=== PATIENT | male | born 1955 | race Caucasian/White ===

== ENCOUNTER 2016-10-02 05:21 | Inpatient (IN) | payer BC ==
[2016-09-20 08:49] VITALS: BMI 29.0
--- NOTE | 2016-09-20 09:19 | PAT Medication Instructions ---
Service Date Sep 20, 2016. Current Home Medication List Hydrochlorothiazide (Hctz), 25 MG PO QAM Losartan Potassium (Cozaar), 100 MG PO QAM Metoprolol Succ (Toprol Xl) (Toprol-Xl), 50 MG PO QAM Simvastatin (Zocor), 20 MG PO QPM Medication Instructions For Your Scheduled Surgery - Hold the following medications the morning of surgery: Hydrochlorothiazide (Hctz), 25 MG PO QAM Losartan Potassium (Cozaar), 100 MG PO QAM - Take the following medications the morning of surgery with a sip of water: Metoprolol Succ (Toprol Xl) (Toprol-Xl), 50 MG PO QAM - Take the following medications as scheduled the night before surgery: Simvastatin (Zocor), 20 MG PO QPM If you have any questions please call us at [phone] or [phone] or [phone]
--- NOTE | 2016-09-20 09:50 | DIAGNOSTIC IMAGING REPORT ---
CHEST PREADMISSION(PA/LAT) CLINICAL HISTORY: 61 years-old Male presenting with preadmission chest x-ray. TECHNIQUE: PA and lateral views of the chest were obtained. COMPARISON: 2008. FINDINGS: Cardiomediastinal silhouette normal. Lungs and pleural spaces clear. Osseous structures and upper abdomen normal. IMPRESSION: 1. No acute cardiopulmonary disease. Electronically signed by: Brian Keita M.D. 09/20/2016 9:49 AM Dictated Date/Time: 09/20/2016 9:46 AM
[2016-09-20 09:53] LABS: BASO % 0.6 %; BASO ABS # 0.04 K/uL (0-0.2); COMPLETE YES; EOS % 4.5 %; IG% 0.4 %; LYMPH % 19.4 %; LYMPH ABS # 1.39 K/uL (1.2-3.4); MEAN CELL VOLUME 89.6 fL (80-100); MEAN CORPUSCULAR HEMOGLOBIN 29.9 pg (25-34); MEAN CORPUSCULAR HGB CONC 33.3 g/dl (32-36); MEAN PLATELET VOLUME 9.8 fL (7.4-10.4); MONO % 8.8 %; NEUT % 66.3 %; PLATELET COUNT 150 K/uL (130-400); RED BLOOD COUNT 5.02 M/uL (4.7-6.1); WHITE BLOOD COUNT 7.15 K/uL (4.8-10.8)
[2016-09-20 09:56] LABS: MANUAL MICROSCOPIC REQUIRED? NO; URINE APPEARANCE CLEAR (CLEAR); URINE BILIRUBIN NEG (NEG); URINE COLOR YELLOW; URINE NITRITE NEG (NEG); URINE PH 6.5 (4.5-7.5); UROBILINOGEN NEG (NEG)
[2016-09-20 10:02] LABS: REVIEW REQ? NO
[2016-09-20 10:55] LABS: BUN/CREATININE RATIO 13.1 (10-20); CALCIUM 9.3 mg/dl (8.5-10.1); CREATININE 0.83 mg/dl (0.60-1.40); POTASSIUM 4.5 mmol/L (3.5-5.1)
[~2016-10-02] VITALS: Ht 170.2 cm; Wt 85.9 kg
[2016-10-02] VITALS (18 sets, daily range): BP systolic 127–172; BP diastolic 75–97; PULSE 64–90; TEMP 36.4–37; O2SAT 94–99; Ht 170.2 cm; Wt 85.9 kg
[~2016-10-02 05:21] MED LIST: HYDR25TA4 PO; LOSA1TAB38 PO; METO50TA7 PO; SIMV20TA2 PO
[2016-10-02] MEDS ORDERED: LACTATED RINGER'S 1000ML 1,000 ML IV SCH (06:00)
[2016-10-02] MEDS ORDERED: CEFAZOLIN 2000 MG/60 ML D5W IV SCH (06:00)
[2016-10-02] MEDS ORDERED: FENTANYL CITRATE INJ 50 MCG/1 ML 2 ML VIAL ONE ×3 (06:53→08:11)
[2016-10-02] MEDS ORDERED: MIDAZOLAM HCL 1 MG/ML 2ML VIAL ONE ×2 (06:53→09:30)
[2016-10-02] MEDS ORDERED: SODIUM CHLORIDE 0.9% PF 50 ML VIAL ONE (06:58)
[2016-10-02] MEDS ORDERED: BACITRACIN 50000 UNIT VIAL ONE (06:59)
[2016-10-02] MEDS ORDERED: ONDANSETRON INJ 2 MG/ML 2 ML VIAL IV PRN ×2 (07:15→09:30)
[2016-10-02] MEDS ORDERED: EpHEDrine SULFATE INJ 50 MG/ML AMP IV PRN (07:15)
[2016-10-02] MEDS ORDERED: ATROPINE SULFATE 0.1 MG/ML 5ML SYR IV PRN (07:15)
[2016-10-02] MEDS ORDERED: HYDROmorphone INJ 1 MG/ML SYR IV PRN ×2 (07:15→12:45)
[2016-10-02] MEDS ORDERED: PROMETHAZINE HCL INJ 6.25 MG in SODIUM CHLORIDE 0.9% 50ML 50 ML IV PRN (07:15)
[2016-10-02] MEDS ORDERED: FENTANYL CITRATE INJ 50 MCG/1 ML 2 ML VIAL IV PRN (07:15)
--- NOTE | 2016-10-02 07:28 | History and Physical ---
History & Physical Date Oct 02, 2016. Chief Complaint Neck and arm pain History of Present Illness The patient is a 61 year old male with complaints of neck and arm pain Additional History Hepatic Disease: No Endocrine Disorder: No Kidney Disease: No Hypertension: Yes Heart Disease: No Bleeding Tendencies: No Infectious Diseases: No Allergies Coded Allergies: Lisinopril (Verified Allergy, Unknown, HIVES, 09/20/16) Uncoded Allergies: CHG WIPES (Allergy, Mild, RASH, 10/02/16) Home Medications Scheduled Hydrochlorothiazide (Hctz), 25 MG PO QAM Losartan Potassium (Cozaar), 100 MG PO QAM Metoprolol Succ (Toprol Xl) (Toprol-Xl), 50 MG PO QAM Simvastatin (Zocor), 20 MG PO QPM Physical Examination Skin: warm/dry, no rash Eyes: normal inspection, EOMI, sclerae normal ENT: normal ENT inspection, pharynx normal Head: normocephalic, atraumatic Neck: supple, no adenopathy, trachea midline Respiratory/Chest: lungs clear, normal breath sounds, no respiratory distress Cardiovascular: regular rate, rhythm, no edema, no murmur Abdomen / GI: normal bowel sounds, non tender Back: normal inspection Extremities: normal inspection, normal range of motion Neurologic/Psych: no motor/sensory deficits, alert, normal reflexes, oriented x 3 Diagnosis Cervical spinal stenosis Plan of Treatment ACDF C5 6 C6 7
--- NOTE | 2016-10-02 07:28 | History & Physical Bridge Note ---
H&P Re-Evaluation Bridge Note: I have examined the patient, reviewed the History & Physical and in the interval since the performance of the History & Physical I have noted the following changes of clinical significance: No changes noted
[2016-10-02] MEDS ORDERED: HYDROmorphone INJ 2 MG/ML SYR/VIAL ONE ×2 (08:03→09:09)
[2016-10-02] MEDS ORDERED: DEXAMETHASONE SOD INJ 4 MG/ML VIAL ONE (08:21)
[2016-10-02] MEDS ORDERED: ROCURONIUM BROMIDE 10 MG/ML 5 ML VIAL ONE (08:21)
[2016-10-02] MEDS ORDERED: ONDANSETRON INJ 2 MG/ML 2 ML VIAL ONE ×2 (08:21→09:13)
[2016-10-02] MEDS ORDERED: PROPOFOL IV EMULSION 10 MG/ML 20 ML VIAL IV ONE (08:21)
[2016-10-02] MEDS ORDERED: LIDOCAINE HCL 2% 2 ML VIAL (20MG/ML) ONE (08:21)
[2016-10-02] MEDS ORDERED: NEOSTIGMINE METHYLSULFATE 5 MG/5 ML SYR ONE (09:13)
[2016-10-02] MEDS ORDERED: GLYCOPYRROLATE INJ 0.2 MG/ML VIAL ONE (09:13)
[2016-10-02] MEDS ORDERED: FLOSEAL HEMOSTATIC MATRIX 10ML TOP ONE (09:22)
[2016-10-02] MEDS ORDERED: HYDROmorphone INJ 0.5 MG/0.5 ML SYR IV PRN (09:30)
[2016-10-02] MEDS ORDERED: DiphenhydrAMINE HCL 50 MG/ML VIAL IV PRN (09:30)
[2016-10-02] MEDS ORDERED: LORAZEPAM INJ 0.5 MG in SYRINGE 0.75 ML IV PRN (09:30)
[2016-10-02] MEDS ORDERED: DO NOT ADMINISTER PNEUMOCOCCAL VACCINE PRN ×2 (09:30)
[2016-10-02] MEDS ORDERED: DO NOT ADMINISTER FLU VACCINE PRN ×3 (09:30)
[2016-10-02] MEDS ORDERED: LORAZEPAM 0.5 MG TAB PO PRN (09:30)
[2016-10-02] MEDS ORDERED: ACETAMINOPHEN IV 1,000 MG in EMPTY BAG 0 ML IV PRN (09:30)
[2016-10-02] MEDS ORDERED: NALOXONE HCL 0.4 MG/1 ML VIAL/CARP IV PRN (09:30)
[2016-10-02] MEDS ORDERED: DEXAMETHASONE INJ 8 MG in SYRINGE 0 ML IV PRN (09:30)
[2016-10-02] MEDS ORDERED: MAGNESIUM HYDROXIDE SUSP 30 ML UDC PO PRN (09:30)
[2016-10-02] MEDS ORDERED: RACEPINEPHRINE 2.25% NEBU SOLN 0.5 ML VIAL INH PRN (09:30)
--- NOTE | 2016-10-02 09:33 | [facility] Operative Report ---
Operative Report Operative Date Oct 02, 2016. Pre-Operative Diagnosis Cervical Spinal Stenosis Post-Operative Diagnosis same as pre-operative Procedure(s) Performed #1 anterior cervical discectomy bilateral foraminotomies C5 6 C6 7. #2 anterior cervical arthrodesis C5 6 and C6 7. #3 placement of cortical allograft filled with DBM 7 mm in height C5 6 C6 7. #4 application of bell plate and screws C5 [address] Rasheed Irvin Sports Therapist Surgeon(s) none per surgeon Findings Severe cervical spinal stenosis Specimens none per surgeon Description of Procedure Patient was met with preoperatively case discussed all questions are dressed with a point patient was taken back to the operative suite and after undergoing successful intubation placed in a supine position Zhang table head in [place] headholder. All promises well-padded eyes inspected to ensure there is no external pressure placed on. This point the anterior cervical spines prepped draped nostril fashion. With the assistance of fluoroscopy to verify the C6 vertebral body and a transverse incision was placed on the right anterior aspect of the cervical spine overlying this region. Sharp dissection we assistance of bipolar cautery performed onto an exposing the anterior cervical spine at C5 6 C6 7. A self retaining retractor was placed. Verified our position with fluoroscopy. A complete discectomy of C5 6 was performed out to the uncovertebral joints bilaterally. Cooter distracting pins utilized to assist in visualization. I did remove all posterior inner fibers perform bilateral foraminotomies. Endplates were then burred to subcortical bleeding bone and a 7 mm cortical allograft filled with DBM tapped in position. Then proceeded to seat C6 7. Again a complete discectomy performed out to the uncovertebral joints bilaterally. Cooter distracting pins again utilized. Remove all posterior inner fibrous longitudinal ligament and bilateral foraminotomies performed. Endplates burred to subcortical bleeding bone. A 7 mm cortical allograft filled with DBM tapped in position. Distracting apparatus removed. All anterior osteophytes burred to a smooth cortical surface. Bell plate and screws applied with the assistance of fluoroscopy. Incision was in copious irrigated explored to ensure there is no damage to surrounding structures remaining bleeding. 10 round JEFF drain inserted. Incision closed with 2 Vicryl in the fascia for Monocryl for final skin closure. Steri-Strips sterile dressing placed. Patient we can taken to PACU stable condition. I attest to the content of the Intraoperative Record and any orders documented therein. Any exceptions are noted below.
--- NOTE | 2016-10-02 09:39 | DIAGNOSTIC IMAGING REPORT ---
Cervical SPINE, INTRAOPERATIVE FLUOROSCOPY HISTORY: C5 C7 ACDF. FLUOROSCOPY TIME: 12 seconds. FINDINGS: Intraoperative fluoroscopy was provided for the cervical spine. 3 fluoroscopic spot images were obtained. Anterior cervical discectomy and fusion from C5 through C7. The hardware appears intact. IMPRESSION: Fluoroscopy provided for a C5-C7 ACDF. Electronically signed by: Star Sheppard M.D. 10/02/2016 9:37 AM Dictated Date/Time: 10/02/2016 9:37 AM
--- NOTE | 2016-10-02 10:43 | Anesthesiology Progress Note ---
Anesthesia Post Op Note Date & Time Oct 02, 2016 at 10:43 Vital Signs Pain Intensity: 0 Vital Signs Past 12 Hours Date Time Temp Pulse Resp B/P (MAP) Pulse Ox O2 Delivery O2 Flow Rate FiO2 10/02/16 10:40 36.4 84 16 147/90 97 Nasal Cannula 2 10/02/16 10:30 36.4 93 16 166/89 97 Nasal Cannula 2 10/02/16 10:20 80 16 143/79 94 Nasal Cannula 2 10/02/16 10:10 79 16 137/81 96 Nasal Cannula 2 10/02/16 10:00 77 14 153/91 96 Nasal Cannula 4 10/02/16 09:50 87 14 154/94 100 Mask 10 10/02/16 09:40 76 14 159/96 100 Mask 10 10/02/16 09:34 37.3 79 14 171/91 99 Mask 10 10/02/16 05:50 36.7 64 20 172/97 98 Room Air Notes Mental Status: alert / awake / arousable, participated in evaluation Pt Amnestic to Procedure: Yes Nausea / Vomiting: adequately controlled Pain: adequately controlled Airway Patency, RR, SpO2: stable & adequate BP & HR: stable & adequate Hydration State: stable & adequate Anesthetic Complications: no major complications apparent
[2016-10-02] MEDS ORDERED: ESMOLOL HCL 10 MG/ML 10 ML VIAL ONE (11:09)
[2016-10-02] MEDS ORDERED: RXC5 PO (12:29)
[2016-10-02] MEDS: LACTATED RINGER'S 1000ML 1,000 ML IV SCH (12:30)
--- NOTE | 2016-10-02 12:30 | Discharge Instructions ---
Discharge Instructions Date of Service Oct 02, 2016. Admission Reason for Admission: Cervical Spinal Stenosis Discharge Discharge Diagnosis / Problem: cervical stenosis Discharge Goals Goal(s): Improve function Activity Recommendations Activity Limitations: per Instructions/Follow-up section . Instructions / Follow-Up Instructions / Follow-Up ACTIVITY RECOMMENDATIONS: SELF CARE INSTRUCTIONS AFTER CERVICAL FUSIONS 1. No smoking. Smoking drastically decreases the chance of a solid fusion. 2. No bending, lifting more than 5 pounds, or twisting (roll like a log when turning in bed). 3. You may shower 3 days after surgery. Thoroughly dry wound. Do not soak in the tub. 4. Cervical collar: Must be worn at all times including sleeping. You may remove the brace only to bath, eat and if you are sitting in a recliner. 5. Please walk as much as you can for exercise. Gradually increase the distance that you walk as your endurance increases. SPECIAL CARE INSTRUCTIONS: VERY IMPORTANT TO READ AND REVIEW A. Do not take any anti-inflammatory medications (i.e. Indocin, Advil, Aspirin, Naprosyn, Aleve, Motrin, etc.) as these may inhibit the chance of a solid fusion. Tylenol is okay to take. B. Your surgical incision has been closed with a cosmetic suture under the skin that will dissolve in about 6 weeks. In 14 days, you can use a pair of clean scissors and cut the suture that is left outside of the skin at the ends of your incision. C. Complications are uncommon, but please contact us if you have any signs or symptoms of: 1. wound infection (fever higher than 102.5 degrees F, redness, separation of wound, drainage, or increasing pain from the incision) 2. blood clots in legs (pain, swelling, redness and warmth in legs) 3. urinary tract infection (fever higher than 102.5 degrees, burning upon urination or increased frequency of urination) 4. nerve problems (inability to walk on your toes or heels, numbness, loss of bowel or bladder control) 5. any other symptoms that concern you. D. Please call the office at if you have any concerns or questions about your operation or recovery. MANAGING PAIN AFTER SPINAL SURGERY 1. Narcotic medication is intended for short-term use and will be provided for surgical pain. Surgical pain usually lasts for a period of 4-6 weeks. Narcotic medication includes Percocet, Vicodin, Darvocet, Tylenol #3 or Lortab. 2. Longer-term pain is more appropriately treated with non-narcotic medication such as Tylenol ES. 3. Muscle spasm is not appropriately treated with narcotics. Muscle relaxers such as Soma, Flexeril or Skelaxin can be used along with Tylenol ES. 4. Remember that we all live with some "aches and pains". This is not unusual or uncommon after an injury or as we get older. 5. We will provide appropriate medication within the normal guidelines of their prescribed use. We will also be very cautious and aware of potential abuse and extended duration of patients' medication needs. 6. Please allow 2-3 days to process refills. Prescriptions will not be mailed but must be picked up at the office. FOLLOW UP VISIT: Keep your scheduled follow-up appointment. Any questions, please call the office at . Current Hospital Diet Patient's current hospital diet: Clear Liquid Diet Discharge Diet Recommended Diet: Regular Diet Procedures Procedures Performed: C5-C6, C6-C7 Anterior Cervical Discectomy and Fusion Pending Studies Studies pending at discharge: no Medical Emergencies . Who to Call and When: Medical Emergencies: If at any time you feel your situation is an emergency, please call 911 immediately. . Non-Emergent Contact Non-Emergency issues call your: Primary Care Provider . "Provider Documentation" section prepared by Rasheed Irvin. . VTE Core Measure Inpt VTE Proph given/why not?: Michi Schultz, [facility]
[2016-10-02] MEDS ORDERED: SCOPOLAMINE 1.5 MG TDSY TD SCH (13:00)
[2016-10-02] MEDS: DEXAMETHASONE INJ 6 MG in SYRINGE 0 ML IV SCH ×2 (14:15→21:50)
[2016-10-02] MEDS: CEFAZOLIN IV 2,000 MG in DEXTROSE 5% 50ML 50 ML IV SCH ×2 (16:10→23:30)
[2016-10-02] MEDS: OXYCODONE HCL IR 5 MG TAB (IMMEDIATE RELEASE) PO PRN (16:10)
[2016-10-02] MEDS: CHECK SCOPOLAMINE PATCH PLACEMENT SCH ×2 (16:11→23:30)
[2016-10-02] MEDS ORDERED: SIMVASTATIN 20 MG TAB PO SCH (21:00)
[2016-10-02] MEDS: DOCUSATE SODIUM 100 MG CAP PO SCH (21:22)
[2016-10-03] VITALS (15 sets, daily range): BP systolic 129–152; BP diastolic 79–92; PULSE 18–78; TEMP 36.5–36.8; O2SAT 94–97
[2016-10-03] MEDS: LACTATED RINGER'S 1000ML 1,000 ML IV SCH (00:36)
[2016-10-03] MEDS: OXYCODONE HCL IR 5 MG TAB (IMMEDIATE RELEASE) PO PRN ×3 (00:36→13:09)
[2016-10-03] MEDS: DEXAMETHASONE INJ 6 MG in SYRINGE 0 ML IV SCH (06:26)
[2016-10-03] MEDS: CHECK SCOPOLAMINE PATCH PLACEMENT SCH (08:09)
[2016-10-03] MEDS: DOCUSATE SODIUM 100 MG CAP PO SCH (08:09)
[2016-10-03] MEDS: CEFAZOLIN IV 2,000 MG in DEXTROSE 5% 50ML 50 ML IV SCH (08:09)
[2016-10-03] MEDS ORDERED: LOSARTAN POTASSIUM 50 MG TAB PO SCH (09:00)
[2016-10-03] MEDS ORDERED: METOPROLOL SUCC 50MG EXT REL TAB PO SCH (09:00)
[2016-10-03] MEDS ORDERED: HYDROCHLOROTHIAZIDE 25 MG TAB PO SCH (09:00)
--- NOTE | 2016-10-03 10:25 | Anesthesiology Progress Note ---
Anesthesia Post Op Note Date & Time Oct 03, 2016 at 10:25 Vital Signs Pain Intensity: 2.0 Vital Signs Past 12 Hours Date Time Temp Pulse Resp B/P (MAP) Pulse Ox O2 Delivery O2 Flow Rate FiO2 10/03/16 09:17 36.7 68 18 97 Nasal Cannula 10/03/16 09:05 36.7 68 18 152/92 97 Nasal Cannula 2.0 10/03/16 08:55 36.7 68 18 152/92 (112) 97 Nasal Cannula 2.0 10/03/16 08:39 95 Nasal Cannula 2.0 10/03/16 07:55 36.7 62 14 152/88 (109) 95 Nasal Cannula 2.0 10/03/16 07:25 72 16 95 Room Air 10/03/16 07:05 96 Nasal Cannula 2.0 Humidified Oxygen 10/03/16 07:05 36.5 62 16 145/88 95 Humidified Oxygen 2.0 10/03/16 05:00 36.7 18 18 144/84 95 Humidified Oxygen 2.0 10/03/16 03:18 67 16 94 Nasal Cannula 2.0 10/03/16 03:00 36.8 78 16 129/82 97 Nasal Cannula 2.0 Humidified Oxygen 10/03/16 01:00 36.6 73 16 147/88 96 Humidified Oxygen 2.0 10/02/16 23:45 85 16 97 Nasal Cannula 2.0 10/02/16 23:00 Nasal Cannula 2.0 Humidified Oxygen 10/02/16 22:53 37.0 71 16 138/80 (99) 96 Nasal Cannula 2.0 Notes Mental Status: alert / awake / arousable, participated in evaluation Pt Amnestic to Procedure: Yes Nausea / Vomiting: adequately controlled Pain: adequately controlled Airway Patency, RR, SpO2: stable & adequate BP & HR: stable & adequate Hydration State: stable & adequate Anesthetic Complications: no major complications apparent
--- NOTE | 2016-10-03 14:05 | Discharge Summary ---
Orthopedic Discharge Summary Admission Date/Reason Oct 02, 2016 at 07:00 Cervical Spinal Stenosis. Discharge Date/Disposition Oct 03, 2016 Home Diagnosis Principal Diagnosis: Cervical spinal stenosis Admission Physical Exam As per Admitting History & Physical. Hospital Course Patient underwent anterior cervical discectomy and fusion tolerated this well taken to the orthopedic 4 postop we. Postop day #1 a swallowing without difficulty. Arm symptoms markedly improved. No hoarseness. Subsequently discharged home. Discharge orders and instructions can be found on the chart for further review. Discharge Instructions Please refer to the electronic Patient Visit Report (Discharge Instructions) for additional information.
[2016-10-04] MEDS ORDERED: BISACODYL 10 MG SUPP PR PRN (06:00)
[2016-10-04] MEDS ORDERED: POLYETHYLENE (MIRALAX) 17 GM PACK PO SCH (09:00)
[2016-10-04] MEDS ORDERED: BISACODYL 5 MG TABEC PO PRN (09:00)
== END 2016-10-03 16:01 | disposition home or self-care (01) | DRG 473 ==
LOC: C.ACU 05:21 → C.3E 07:00 → ENRESERV 10:40
PROVIDERS: ADMIT Orthopaedic Surgery Orthopaedic Surgery of the Spine; ATTEND Orthopaedic Surgery Orthopaedic Surgery of the Spine
PROC: 0RT30ZZ Resection of Cervical Vertebral Disc, Open Approach (ICD-10-PCS; principal; 2016-10-02 07:45)
PROC: 0RG2070 Fusion of 2 or more Cervical Vertebral Joints with Autologous Tissue Substitute, Anterior Approach, Anterior Column, Open Approach (ICD-10-PCS; principal; 2016-10-02 07:45)
DX: M48.02 Spinal stenosis, cervical region (principal); Z79.899 Other long term (current) drug therapy